=== PATIENT | male | born 1945 | race Hispanic/Latino ===

== ENCOUNTER 2020-04-03 22:44 | Emergency (ER) | payer MEDICARE, OTHER ==
--- NOTE | 2020-04-03 23:18 | Emergency Department Report ---
ED Extremity Problem HPI - General Chief complaint: Extremity Injury, Lower Stated complaint: RIGHT ANKLE PAIN Time Seen by Provider: 04/03/20 22:58 Source: patient, EMS Mode of arrival: Stretcher Limitations: No Limitations - History of Present Illness Initial comments: 74-year-old male with history of CAD presents to the hospital complaining of ankle pain after fall. Patient slipped off a ledge at his home injuring his right ankle. He denies any head injury, neck pain, syncope, or other bodily pain. Patient took Motrin and Tylenol 4 hours ago. He presents with a splint placed by EMS and states his pain is minimal at this time but worse with palpation and movement. - Related Data Home Medications Medication Instructions Recorded Confirmed Last Taken Aspirin [Aspirin BABY CHEW TAB] 81 mg PO DAILY 05/30/14 08/09/14 08/08/14 Omeprazole [PriLOSEC] 20 mg PO DAILY 05/30/14 08/09/14 08/08/14 Pravastatin [Pravachol] 40 mg PO DAILY 05/30/14 08/09/14 08/08/14 Clopidogrel Bisulfate [Plavix] 75 mg PO DAILY 08/09/14 08/09/14 08/08/14 Metoprolol [Lopressor TAB] 25 mg PO BID 08/09/14 08/09/14 08/08/14 Allergies Allergy/AdvReac Type Severity Reaction Status Date / Time No Known Allergies Allergy Unverified 05/30/14 09:46 ED Review of Systems ROS: Stated complaint: RIGHT ANKLE PAIN Other details as noted in HPI Comment: All other systems reviewed and negative ED Past Medical Hx - Past Medical History Hx Hypertension: Yes Hx GERD: Yes Hx Arthritis: Yes - Social History Smoking Status: Former Smoker - Medications Home Medications: Home Medications Medication Instructions Recorded Confirmed Last Taken Type Aspirin [Aspirin BABY CHEW TAB] 81 mg PO DAILY 05/30/14 08/09/14 08/08/14 History Omeprazole [PriLOSEC] 20 mg PO DAILY 05/30/14 08/09/14 08/08/14 History Pravastatin [Pravachol] 40 mg PO DAILY 05/30/14 08/09/14 08/08/14 History Clopidogrel Bisulfate [Plavix] 75 mg PO DAILY 08/09/14 08/09/14 08/08/14 History Metoprolol [Lopressor TAB] 25 mg PO BID 08/09/14 08/09/14 08/08/14 History ED Physical Exam - General Limitations: No Limitations - Other Other exam information: General: No acute distress Head: Atraumatic Eyes: normal appearance Neck: Normal appearance, no midline tenderness Chest: Clear to auscultation bilaterally CV: Regular rate and rhythm Abdomen: Soft, normal bowel sounds, nontender, nondistended, no rebound or guarding Back: Normal inspection Extremity: 2+ right DP pulse with tenderness at the ankle. No tenderness to the right hip, knee, or other parts of the lower leg. Patient has some mild skin tenting to the medial ankle area Neuro: Alert O x 3, no facial asymmetry, speech clear, no gross motor sensory deficit Psych: Appropriate behavior Skin: No rash ED Course Vital Signs 04/03/20 04/03/20 04/03/20 23:02 23:47 23:49 Temperature 97.8 F 98.0 F Pulse Rate 76 57 L 75 Respiratory 18 16 16 Rate Blood Pressure 135/71 Blood Pressure 126/68 [Right] O2 Sat by Pulse 97 96 95 Oximetry 04/04/20 04/04/20 04/04/20 00:01 00:15 00:31 Temperature Pulse Rate 89 72 74 Respiratory 20 21 19 Rate Blood Pressure 119/68 122/68 122/68 Blood Pressure [Right] O2 Sat by Pulse 96 94 93 Oximetry 04/04/20 04/04/20 04/04/20 00:45 01:01 01:15 Temperature Pulse Rate 82 Respiratory 12 Rate Blood Pressure 122/68 141/79 134/74 Blood Pressure [Right] O2 Sat by Pulse 94 95 93 Oximetry 04/04/20 01:18 Temperature Pulse Rate 80 Respiratory 17 Rate Blood Pressure Blood Pressure 141/79 [Right] O2 Sat by Pulse 95 Oximetry - Consultations Consultation #1: 04/04/20 12:54 AM Case discussed with Dr. Wong orthopedic surgeon who reviewed x-rays of right ankle. Recommend splinting and follow-up in the office peer - Orthopedic Splinting/Casting Injury #1 Side: right Lower Extremity Injury Location: ankle Lower Extremity Immobilizer: posterior splint, stirrup splint Other Orthopedic Equipment: crutches Additional Comments: I assisted and supervised tech with placement of orthopedic splint while I held traction and flexion of the right ankle. ED Medical Decision Making - Radiology Data Radiology results: report reviewed RIGHT ANKLE 3 VIEWS RIGHT FOOT 2 VIEWS INDICATION / CLINICAL INFORMATION: Fall with right ankle/foot pain. COMPARISON: None available. FINDINGS: BONES / JOINT(S): There is an acute comminuted fracture of the distal fibular metadiaphysis with mild lateral and posterior displacement of the distal fracture fragment. There is also an acute comminuted transverse fracture of the medial malleolus with lateral displacement of the distal fracture fragment. There is lateral subluxation of the talus in relationship to the tibia. There is a probable acute fracture of the posterior malleolus. There are small dorsal and plantar calcaneal spurs. There are advanced degenerative changes involving the first metatarsophalangeal joint. There is internal fixation of the base of the fifth metatarsal. SOFT TISSUES: There is mild generalized soft tissue swelling. ADDITIONAL FINDINGS: None. IMPRESSION: Acute trimalleolar fracture dislocation involving the right ankle. RIGHT ANKLE 3 VIEWS INDICATION / CLINICAL INFORMATION: Post reduction. COMPARISON: Yesterday. FINDINGS: Minimal change in the alignment of the recently described fracture/dislocation of the ankle is noted. There is persistent mild lateral subluxation of the talus in relationship to the tibia. A posterior splint is present. - Medical Decision Making 74 yo male presents to the hospital with accidental slip and fall resulting in trimalleolar right ankle fracture. Posterior U-splint placed in the ED. Patient provided crutches with teaching but will also be provided a walker if he fails crutches attempt. Patient offered prescription for pain medications but he states he has pain medication at home. Case discussed with the orthopedic surgeon outpatient follow-up will be provided Patient provided x-ray report and images to take to the doctor of his choice since he may plan to follow-up with resurgeons orthopedic Critical Care Time: No Critical care attestation.: If time is entered above; I have spent that time in minutes in the direct care of this critically ill patient, excluding procedure time. ED Disposition Clinical Impression: Trimalleolar fracture of ankle, closed Qualifiers: Laterality: right Disposition: DC-01 TO HOME OR SELFCARE Is pt being admited?: No Does the pt Need Aspirin: No Condition: Stable Instructions: Ankle Fracture Additional Instructions: Take the medication as prescribed. Follow-up with your doctor or doctor/clinic provided. Return if symptoms worsen as indicated by your discharge instructions. Referrals: JOE WONG MD [Staff Physician] - 3-5 Days [facility] [Provider Group] - 3-5 Days Time of Disposition: 02:07
--- NOTE | 2020-04-03 23:51 | XRay Report ---
RIGHT ANKLE 3 VIEWS RIGHT FOOT 2 VIEWS INDICATION / CLINICAL INFORMATION: Fall with right ankle/foot pain. COMPARISON: None available. FINDINGS: BONES / JOINT(S): There is an acute comminuted fracture of the distal fibular metadiaphysis with mild lateral and posterior displacement of the distal fracture fragment. There is also an acute comminute d transverse fracture of the medial malleolus with lateral displacement of the distal fracture fragme nt. There is lateral subluxation of the talus in relationship to the tibia. There is a probable acute fracture of the posterior malleolus. There are small dorsal and plantar calcaneal spurs. There are a dvanced degenerative changes involving the first metatarsophalangeal joint. There is internal fixatio n of the base of the fifth metatarsal. SOFT TISSUES: There is mild generalized soft tissue swelling. ADDITIONAL FINDINGS: None. IMPRESSION: Acute trimalleolar fracture dislocation involving the right ankle. Signer Name: Luke Davison MD Signed: 04/03/2020 11:47 PM Workstation Name: [id number]
[2020-04-04] MEDS ORDERED: ONDANSETRON 4 MG/2 ML INJ IV ONE (00:08)
[2020-04-04] MEDS ORDERED: fentaNYL 100 MCG/2 ML INJ IV ONE (00:08)
[2020-04-04 01:19] VITALS: BP 141/79
--- NOTE | 2020-04-04 01:36 | XRay Report ---
RIGHT ANKLE 3 VIEWS INDICATION / CLINICAL INFORMATION: Post reduction. COMPARISON: Yesterday. FINDINGS: Minimal change in the alignment of the recently described fracture/dislocation of the ankle is noted. There is persistent mild lateral subluxation of the talus in relationship to the tibia. A posterior splint is present. Signer Name: Luke Davison MD Signed: 04/04/2020 1:32 AM Workstation Name: [id number]
== END 2020-04-04 03:23 | disposition home or self-care (01) ==
LOC: ED 22:44
DX: S82.851A Displaced trimalleolar fracture of right lower leg, initial encounter for closed fracture (principal); I10 Essential (primary) hypertension; K21.9 Gastro-esophageal reflux disease without esophagitis; M19.91 Primary osteoarthritis, unspecified site; Z87.891 Personal history of nicotine dependence; Z79.899 Other long term (current) drug therapy; W01.0XXA Fall on same level from slipping, tripping and stumbling without subsequent striking against object, initial encounter; Y93.89 Activity, other specified; Y92.89 Other specified places as the place of occurrence of the external cause; Y99.8 Other external cause status
CPT/HCPCS: 29515; 73610; 73620; 96374; 96375; 99284; J2405; J3010

== ENCOUNTER 2021-03-17 07:35 | Day surgery (SDC) | payer MEDICARE, OTHER ==
[2021-03-17] MEDS ORDERED: ASPIRIN EC 325 MG TAB PO ONE (08:20)
[2021-03-17 08:54] LABS: Basophils % (Auto) 1.1 % (0.0-1.8); Eosinophils # (Auto) 0.1 K/mm3 (0.0-0.4); Eosinophils % (Auto) 2.5 % (0.0-4.3); Hematocrit 41.8 % (35.5-45.6); Hemoglobin 13.8 gm/dl (11.8-15.2); Lymphocytes # (Auto) 1.5 K/mm3 (1.2-5.4); Mean Corpuscular HGB Conc 33 % (32-34); Mean Corpuscular Volume 95 fl (84-94); Monocytes # (Auto) 0.6 K/mm3 (0.0-0.8); Monocytes % (Auto) 13.3 % (0.0-7.3); Platelet Count 156 K/mm3 (140-440); Red Cell Distribution Width 13.3 % (13.2-15.2)
[2021-03-17] MEDS ORDERED: SODIUM CHLORIDE 0.9% 500 ML 500 ML IV SCH (09:00)
[2021-03-17 09:08] LABS: BUN/Creatinine Ratio 13; Blood Urea Nitrogen 10 mg/dL (9-20); Hemolysis Index 167
[2021-03-17 09:11] LABS: INR 0.82 (0.87-1.13)
[2021-03-17] MEDS ORDERED: MIDAZOLAM 2 MG/2 ML INJ ONE (10:55)
[2021-03-17] MEDS ORDERED: fentaNYL 100 MCG/2 ML INJ ONE (10:55)
[2021-03-17] MEDS ORDERED: HEPARIN 10,000 UNITS/10 ML VIAL ONE (10:55)
[2021-03-17] MEDS ORDERED: HEPARIN/NS 5000 UNIT/500ML 1,000 ML IR ONE (10:55)
[2021-03-17] MEDS ORDERED: LIDOCAINE (2%) 20 MG/1 ML VIAL 20 ML MDV INFILTRATI ONE (10:55)
[2021-03-17] MEDS ORDERED: MIDAZOLAM 2 MG/2 ML INJ IV ONE (11:52)
[2021-03-17] MEDS ORDERED: fentaNYL 100 MCG/2 ML INJ IV ONE (11:52)
[2021-03-17] MEDS ORDERED: HEPARIN 5,000 UNIT in SODIUM CHLORIDE 0.9% 500 ML 500 ML IR ONE (11:54)
[2021-03-17] MEDS ORDERED: traMADol 50 MG TAB PO PRN (12:41)
--- NOTE | 2021-03-17 12:44 | Discharge Summary ---
Short Stay Discharge Plan Activity: advance as tolerated Weight Bearing Status: Partial Weight Bearing Diet: low fat, low cholesterol, low salt Wound: keep clean and dry Special Instructions: no heavy lifting Follow up with: YAQUELIN STRINGER MD [Primary Care Provider] - 7 Days DANIEL HYMAN MD [Staff Physician] - 7 Days
[2021-03-17] MEDS ORDERED: SODIUM CHLORIDE 0.9% 1000 ML 1,000 ML IV SCH (12:45)
--- NOTE | 2021-03-17 13:24 | Cardiac Catherization Report ---
DATE OF SERVICE: 03/17/2021 CARDIAC CATHETERIZATION REPORT REASON FOR PROCEDURE: The patient is a 75-year-old man with coronary artery disease, status post 4-vessel coronary artery bypass in 2014, presented with chest pain and abnormal thallium stress test. Recommended for cardiac catheterization. PROCEDURES: 1. Left heart catheterization. 2. Selective left and right coronary angiography. 3. Left ventricular angiography. 4. Angiography of the left internal mammary artery graft. 5. Angiography of the saphenous vein grafts. 6. Sedation time start 11:54, end 12:14. DESCRIPTION OF PROCEDURE: The patient was prepped and draped in a sterile fashion after informed consent. The right femoral artery was entered using Seldinger technique followed by placement of a 6-Kinyarwanda sheath. Selective left and right coronary angiography was performed using #4 left and right Francisco catheters. The right Francisco was then used for saphenous vein graft angiography. We then exchanged for left internal mammary artery graft catheter for left internal mammary graft angiography. Finally, a pigtail catheter was used for left ventricular angiography. The angiograms were reviewed. FINDINGS: HEMODYNAMICS: Left ventricular end-diastolic pressure was 27, following coronary angiography. Ascending aortic pressure 160/79. There was no significant pressure gradient on pullback across the aortic valve. CORONARY ANGIOGRAPHY: The left main coronary artery was subtotally occluded in its distal segment before its bifurcation into the LAD and circumflex arteries. The LAD was then occluded in its proximal to mid segment after a medium-sized first diagonal branch. The saphenous vein graft to the first diagonal branch was occluded at its origin. The diagonal branch was therefore minimally perfused via the severe stenosis of the distal left main. The left internal mammary artery graft to the LAD was patent with good anastomosis to the mid LAD, and good distal runoff. The circumflex artery was a dominant vessel. The AV groove vessel had mild irregularities, and was itself completely occluded in its mid to distal segment. Another saphenous vein graft was fashioned with 2 targets to the distal, dominant circumflex. There was a [id number] anastomosis to the left posterior descending branch, and end-to-side anastomosis to the posterior left ventricular branch. This vein graft was patent with good anastomosis to both targets and good runoff. We did note that there was suboptimal perfusion of the left posterior descending branch from the bypass graft due to the distal location of the graft anastomosis, and the severe, greater than 99% stenosis of the proximal segment of the posterior descending artery. However, this branch vessel was also perfused by left to left collaterals via the LAD and its bypass graft. The right coronary artery was a small caliber nondominant vessel. This vessel also contained a long chronic total occlusion of its mid segment, demonstrating some bridging collaterals to a terminal right ventricular branch. The left ventricle was moderately dilated, there was moderately severe left ventricular systolic dysfunction, diffuse hypokinesis, left ventricular ejection fraction 30-35%. CONCLUSION: 1. Severe 3-vessel coronary artery disease. 2. Patent bypass grafts x 3, with a patent left internal mammary artery graft to the LAD and a patent saphenous vein graft with 2 targets to the distal, dominant circumflex. 3. Occluded bypass graft x 1, saphenous vein graft to the proximal diagonal branch of the LAD. 4. Ischemic cardiomyopathy, moderately severe left ventricular systolic dysfunction with ejection fraction 30-35%. The catheters and the sheaths were removed, hemostasis achieved using manual compression. The patient was returned to the postprocedure unit in stable condition. There were no complications. RECOMMENDATIONS: 1. Aggressive risk factor modification, and medical therapy for small vessel coronary artery disease. 2. If clinically indicated by continued symptoms despite optimal medical therapy, the patient can be considered for coronary intervention to the distal left main stenosis, with intended target to perfuse the medium sized first diagonal branch, which has lost, is bypass graft. TID: [id number] RECEIPT: [id number] STEVEN/PEGGY HARTMANND
[2021-03-17 16:03] VITALS: BP 154/78
== END 2021-03-17 17:00 | disposition home or self-care (01) ==
LOC: CATHLABREC 07:35
PROVIDERS: ATTEND Internal Medicine Cardiovascular Disease
DX: I25.810 Atherosclerosis of coronary artery bypass graft(s) without angina pectoris (principal); I10 Essential (primary) hypertension; I48.91 Unspecified atrial fibrillation; E78.00 Pure hypercholesterolemia, unspecified; K21.9 Gastro-esophageal reflux disease without esophagitis; M19.90 Unspecified osteoarthritis, unspecified site; Z87.891 Personal history of nicotine dependence; Z79.82 Long term (current) use of aspirin; Z79.899 Other long term (current) drug therapy; Z98.890 Other specified postprocedural states
CPT/HCPCS: 36415; 80048; 85025; 85610; 93005; 93459; 99156; C1769; C1894; J1644; J2250; J3010; J3490; J7040; Q9967